=== PATIENT | male | born 1985 | race Caucasian/White ===

== ENCOUNTER 2020-03-23 03:25 | Emergency (ER) | payer BC, OTHER ==
[~2020-03-23] VITALS: Ht 185.5 cm; Wt 97.7 kg
[~2020-03-23 03:25] MED LIST: HYDR1CAP2 PO; HYDR1TAB86 PO
--- OUTSIDE RECORDS SUMMARY | 2020-03-23 03:31 | XMS REPORT | Continuity of Care Document ---
Author Organization Unknown Address Unknown Phone Unavailable Allergies Active Description Code Type Severity Reaction Onset Reported/Identified Relationship to Patient Clinical Status Yes MDX - Penicillin X193 Drug Allerg y Unknown N/A 05/26/2014 Yes Penicillin X193 Drug Allergy Unknown N/A 05/26/2014 Medications There is no data. Problems Date Dx Coded Attending Type Code Diagnosis Diagnosed By 08/29/2014 A 296.90 08/29/2014 W 298.9 08/29/2014 W 305.20 08/29/2014 W 493.90 08/29/2014 W 530.81 08/29/2014 W 601.1 08/29/2014 W V60.2 08/29/2014 W V62.4 08/29/2014 A 296.90 08/29/2014 W 298.9 08/29/2014 W 305.20 08/29/2014 W 493.90 08/29/2014 W 530.81 08/29/2014 W 601.1 08/29/2014 W V60.2 08/29/2014 W V62.4 08/29/2014 W V67.3 08/29/2014 A 296.90 08/29/2014 W 298.9 08/29/2014 W 305.20 08/29/2014 W 493.90 08/29/2014 W 530.81 08/29/2014 W 601.1 08/29/2014 W V60.2 08/29/2014 W V62.4 08/29/2014 W V67.3 09/05/2014 A 296.90 09/05/2014 W 298.9 09/05/2014 W 305.20 09/05/2014 W 493.90 09/05/2014 W 530.81 09/05/2014 W 601.1 09/05/2014 W V60.2 09/05/2014 W V62.4 09/05/2014 A 296.90 09/05/2014 W 298.9 09/05/2014 W 305.20 09/05/2014 W 493.90 09/05/2014 W 530.81 09/05/2014 W 601.1 09/05/2014 W V60.2 09/05/2014 W V62.4 09/05/2014 W V67.3 09/05/2014 A 296.90 09/05/2014 W 298.9 09/05/2014 W 305.20 09/05/2014 W 493.90 09/05/2014 W 530.81 09/05/2014 W 601.1 09/05/2014 W V60.2 09/05/2014 W V62.4 09/05/2014 W V67.3 10/07/2014 Regine NAZARIO, Aveekshit A 296.90 10/07/2014 Regine NAZARIO, Aveekshit W 298.9 10/07/2014 Regine NAZARIO, Aveekshit W 305.20 10/07/2014 Regine NAZARIO, Ave[place] W 493.90 10/07/2014 Regine NAZARIO, Aveekshit W 530.81 10/07/2014 Regine NAZARIO, Aveekshit W 601.1 10/07/2014 Regine NAZARIO, Aveekshit W V60.2 10/07/2014 Regine NAZARIO, Aveekshit W V67.3 10/09/2014 Regine NAZARIO, Aveekshit A 296.90 10/09/2014 Regine NAZARIO, Aveekshit W 298.9 10/09/2014 Regine NAZARIO, Aveekshit W 305.20 10/09/2014 Regine NAZARIO, Aveekshit W 493.90 10/09/2014 Regine NAZARIO, Aveekshit W 530.81 10/09/2014 Regine NAZARIO, Aveekshit W 601.1 10/09/2014 Regine NAZARIO, Aveekshit W V60.2 10/09/2014 Regine NAZARIO, Aveekshit W V67.3 10/21/2014 Regine NAZARIO, Aveekshit A 296.90 10/21/2014 Regine NAZARIO, Aveekshit W 298.9 10/21/2014 Regine NAZARIO, Aveekshit W 305.20 10/21/2014 Regine NAZARIO, Aveekshit W 493.90 10/21/2014 Regine NAZARIO, Aveekshit W 530.81 10/21/2014 Regine NAZARIO, Aveekshit W 601.1 10/21/2014 Rgeine NAZARIO, Aveekshit W V60.2 10/21/2014 Regine NAZARIO, Aveekshit W V67.3 10/24/2014 Jose Carlos NAZARIO, Stewart W 45 6.4 10/24/2014 Jose Carlos NAZARIO, Stewart A 60 3.9 10/24/2014 A 296.90 10/24/2014 W 298.9 10/24/2014 W 305.20 10/24/2014 W 493.90 10/24/2014 W 530.81 10/24/2014 W 601.1 10/24/2014 W V60.2 10/24/2014 W V62.4 10/24/2014 A 296.90 10/24/2014 W 298.9 10/24/2014 W 305.20 10/24/2014 W 493.90 10/24/2014 W 530.81 10/24/2014 W 601.1 10/24/2014 W V60.2 10/24/2014 W V62.4 10/24/2014 W V67.3 10/24/2014 A 296.90 10/24/2014 W 298.9 10/24/2014 W 305.20 10/24/2014 W 493.90 10/24/2014 W 530.81 10/24/2014 W 601.1 10/24/2014 W V60.2 10/24/2014 W V62.4 10/24/2014 W V67.3 10/31/2014 Regine NAZARIO, Aveekshit A 296.90 10/31/2014 Regine NAZARIO, Aveekshit W 298.9 10/31/2014 Regine NAZARIO, Aveekshit W 305.20 10/31/2014 Regine NAZARIO, Aveekshit W 493.90 10/31/2014 Regine NAZARIO, Aveekshit W 530.81 10/31/2014 Regine NAZARIO, Aveekshit W 601.1 10/31/2014 Regine NAZARIO, Aveekshit W V60.2 10/31/2014 Regine NAZARIO, Aveekshit W V67.3 11/02/2014 Regine NAZARIO, Aveekshit A 296.90 11/02/2014 Regine NAZARIO, Aveekshit W 298.9 11/02/2014 Regine NAZARIO, Aveekshit W 305.20 11/02/2014 Regine NAZARIO, Aveekshit W 493.90 11/02/2014 Regine NAZARIO, Aveekshit W 530.81 11/02/2014 Regine NAZARIO, Aveekshit W 601.1 11/02/2014 Regine NAZARIO, Aveekshit W V60.2 11/02/2014 Regine NAZARIO, Aveekshit W V67.3 01/09/2015 A 296.90 01/09/2015 W 298.9 01/09/2015 W 305.20 01/09/2015 W 493.90 01/09/2015 W 530.81 01/09/2015 W 601.1 01/09/2015 W V60.2 01/09/2015 W V67.3 01/16/2015 Regine NAZARIO, Aveekshit A 296.90 01/16/2015 Regine NAZARIO, Aveekshit W 298.9 01/16/2015 Regine NAZARIO, Aveekshit W 305.20 01/16/2015 Regine NAZARIO, Aveekshit W 493.90 01/16/2015 Regine NAZARIO, Aveekshit W 530.81 01/16/2015 Regine NAZARIO, Aveekshit W 601.1 01/16/2015 Regine NAZARIO, Aveekshit W V60.2 01/16/2015 Regine NAZARIO, Aveekshit W V67.3 01/18/2015 Regine NAZARIO, Aveekshit A 296.90 01/18/2015 Regine NAZARIO, Aveekshit W 298.9 01/18/2015 Regine NAZARIO, Aveekshit W 305.20 01/18/2015 Regine NAZARIO, Aveekshit W 493.90 01/18/2015 Regine NAZARIO, Aveekshit W 530.81 01/18/2015 Regine NAZARIO, Aveekshit W 601.1 01/18/2015 Regine NAZARIO, Aveekshit W V60.2 01/18/2015 Regine NAZARIO, Aveekshit W V67.3 01/23/2015 Regine NAZARIO, Aveekshit A 296.90 01/23/2015 Regine NAZARIO, Aveekshit W 298.9 01/23/2015 Regine NAZARIO, Aveekshit W 305.20 01/23/2015 Regine NAZARIO, Aveekshit W 493.90 01/23/2015 Regine NAZARIO, Aveekshit W 530.81 01/23/2015 Regine NAZARIO, Aveekshit W 601.1 01/23/2015 Regine NAZARIO, Aveekshit W V60.2 01/23/2015 Regine NAZARIO, Aveekshit W V67.3 02/04/2015 Regine NAZARIO, Aveekshit A 296.90 02/04/2015 Regine NAZARIO, Aveekshit W 298.9 02/04/2015 Regine NAZARIO, Aveekshit W 305.20 02/04/2015 Regine NAZARIO, Aveekshit W 493.90 02/04/2015 Regine NAZARIO, Aveekshit W 530.81 02/04/2015 Regine NAZARIO, Aveekshit W 601.1 02/04/2015 Regine NAZARIO, Aveekshit W V60.2 02/04/2015 Regine NAZARIO, Aveekshit W V67.3 02/06/2015 Regine NAZARIO, Aveekshit A 296.90 02/06/2015 Regine NAZARIO, Aveekshit W 298.9 02/06/2015 Regine NAZARIO, Aveekshit W 305.20 02/06/2015 Regine NAZARIO, Aveekshit W 493.90 02/06/2015 Regine NAZARIO, Aveekshit W 530.81 02/06/2015 Regine NAZARIO, Aveekshit W 601.1 02/06/2015 Regine NAZARIO, Aveekshit W V60.2 02/06/2015 Regine NAZARIO, Aveekshit W V67.3 02/13/2015 Regine NAZARIO, Aveekshit A 296.90 02/13/2015 Regine NAZARIO, Aveekshit W 298.9 02/13/2015 Regine NAZARIO, Aveekshit W 305.20 02/13/2015 Regine NAZARIO, Aveekshit W 493.90 02/13/2015 Regine NAZARIO, Aveekshit W 530.81 02/13/2015 Regine NAZARIO, Aveekshit W 601.1 02/13/2015 Regine NAZARIO, Aveekshit W V60.2 02/13/2015 Regine NAZARIO, Aveekshit W V67.3 02/18/2015 Regine NAZARIO, Aveekshit A 296.90 02/18/2015 Regine NAZARIO, Aveekshit W 298.9 02/18/2015 Regine NAZARIO, Aveekshit W 305.20 02/18/2015 Regine NAZARIO, Aveekshit W 493.90 02/18/2015 Regine NAZARIO, Aveekshit W 530.81 02/18/2015 Regine NAZARIO, Aveekshit W 601.1 02/18/2015 Regine NAZARIO, Aveekshit W V60.2 02/18/2015 Regine NAZARIO, Aveekshit W V67.3 02/18/2015 Regine NAZARIO, Aveekshit A 296.90 02/18/2015 Regine NAZARIO, Aveekshit W 298.9 02/18/2015 Regine NAZARIO, Aveekshit W 305.20 02/18/2015 Regine NAZARIO, Aveekshit W 493.90 02/18/2015 Regine NAZARIO, Aveekshit W 530.81 02/18/2015 Regine NAZARIO, Aveekshit W 601.1 02/18/2015 Regine NAZARIO, Aveekshit W V60.2 02/18/2015 Regine NAZARIO, Aveekshit W V67.3 02/20/2015 Regine NAZARIO, Aveekshit A 296.90 02/20/2015 Regine NAZARIO, Aveekshit W 298.9 02/20/2015 Regine NAZARIO, Aveekshit W 305.20 02/20/2015 Regine NAZARIO, Aveekshit W 493.90 02/20/2015 Regine NAZARIO, Aveekshit W 530.81 02/20/2015 Regine NAZARIO, Aveekshit W 601.1 02/20/2015 Regine NAZARIO, Aveekshit W V60.2 02/20/2015 Regine NAZARIO, Aveekshit W V67.3 02/27/2015 Regine NAZARIO, Aveekshit A 296.90 02/27/2015 Regine NAZARIO, Aveekshit W 298.9 02/27/2015 Regine NAZARIO, Aveekshit W 305.20 02/27/2015 Regine NAZARIO, Aveekshit W 493.90 02/27/2015 Regine NAZARIO, Aveekshit W 530.81 02/27/2015 Regine NAZARIO, Aveekshit W 601.1 02/27/2015 Regine NAZARIO, Aveekshit W V60.2 02/27/2015 Regine NAZARIO, Aveekshit W V67.3 04/24/2015 Regine NAZARIO, Aveekshit A 296.90 04/24/2015 Regine NAZARIO, Aveekshit W 298.9 04/24/2015 Regine NAZARIO, Aveekshit W 305.20 04/24/2015 Regine NAZARIO, Aveekshit W 493.90 04/24/2015 Regine NAZARIO, Aveekshit W 530.81 04/24/2015 Regine NAZARIO, Aveekshit W 601.1 04/24/2015 Regine NAZARIO, Aveekshit W V60.2 04/24/2015 Regine NAZARIO, Aveekshit W V67.3 04/26/2015 Regine NAZARIO, Aveekshit A 296.90 04/26/2015 Regine NAZARIO, Aveekshit W 298.9 04/26/2015 Regine NAZARIO, Aveekshit W 305.20 04/26/2015 Regine NAZARIO, Aveekshit W 493.90 04/26/2015 Regine NAZARIO, Aveekshit W 530.81 04/26/2015 Regine NAZARIO, Aveekshit W 601.1 04/26/2015 Regine NAZARIO, Aveekshit W V60.2 04/26/2015 Regine NAZARIO, Aveekshit W V67.3 05/08/2015 Regine NAZARIO, Aveekshit A 296.90 05/08/2015 Regine NAZARIO, Aveekshit W 298.9 05/08/2015 Regine NAZARIO, Aveekshit W 305.20 05/08/2015 Regine NAZARIO, Aveekshit W 493.90 05/08/2015 Regine NAZARIO, Aveekshit W 530.81 05/08/2015 Regine NAZARIO, Aveekshit W 601.1 05/08/2015 Regine NAZARIO, Aveekshit W V60.2 05/08/2015 Regine NAZARIO, Aveekshit W V67.3 01/21/2016 Regine NAZARIO, Aveekshit A 296.90 01/21/2016 Regine NAZARIO, Aveekshit W 298.9 01/21/2016 Regine NAZARIO, Aveekshit W 305.20 01/21/2016 Regine NAZARIO, Aveekshit W 493.90 01/21/2016 Regine NAZARIO, Aveekshit W 530.81 01/21/2016 Regine NAZARIO, Aveekshit W 601.1 01/21/2016 Regine NAZARIO, Aveekshit W V60.2 01/21/2016 Regine NAZARIO, Aveekshit W V67.3 01/21/2016 Regine NAZARIO, Aveekshit A 296.90 01/21/2016 Regine NAZARIO, Aveekshit W 298.9 01/21/2016 Regine NAZARIO, Aveekshit W 305.20 01/21/2016 Regine NAZARIO, Aveekshit W 493.90 01/21/2016 Regine NAZARIO, Aveekshit W 530.81 01/21/2016 Regine NAZARIO, Aveekshit W 601.1 01/21/2016 Regine NAZARIO, Aveekshit W V60.2 01/21/2016 Regine NAZARIO, Aveekshit W V67.3 01/21/2016 Regine NAZARIO, Aveekshit A 296.90 01/21/2016 Regine NAZARIO, Aveekshit W 298.9 01/21/2016 Regine NAZARIO, Aveekshit W 305.20 01/21/2016 Regine NAZARIO, Aveekshit W 493.90 01/21/2016 Regine NAZARIO, Aveekshit W 530.81 01/21/2016 Regine NAZARIO, Aveekshit W 601.1 01/21/2016 Regine NAZARIO, Aveekshit W V60.2 01/21/2016 Regine NAZARIO, Aveekshit W V67.3 01/21/2016 Regine NAZARIO, Aveekshit A 296.90 01/21/2016 Regine NAZARIO, Aveekshit W 298.9 01/21/2016 Regine NAZARIO, Aveekshit W 305.20 01/21/2016 Regine NAZARIO, Aveekshit W 493.90 01/21/2016 Regine NAZARIO, Aveekshit W 530.81 01/21/2016 Regine NAZARIO, Aveekshit W 601.1 01/21/2016 Regine NAZARIO, Aveekshit W V60.2 01/21/2016 Regine NAZARIO, Aveekshit W V67.3 01/27/2016 Regine NAZARIO, Aveekshit A F31.4 01/29/2016 Regine NAZARIO, Aveekshit A F31.4 04/28/2016 Regine NAZARIO, Aveekshit A F31.81 BIPOLAR II DISORDER 04/30/2016 Regine NAZARIO, Aveekshit A F31.81 BIPOLAR II DISORDER Procedures There is no data. Results There is no data. Encounters ACCT No. Visit Date/Time Discharge Status Pt. Type Provider Facility Loc./Unit Complaint [id number] 04/23/2016 14:51:00 6 23:59:59 CLS Outpatient Mei MDeekshit [facility] [id number] 01/21/2016 09:21:00 6 23:59:59 CLS Outpatient Mei MDeeksnandinit [facility] [id number] 04/15/2015 17:23:00 5 23:59:59 CLS Outpatient Coretta Weiner MDksduc [facility] [id number] 02/11/2015 16:56:00 5 23:59:59 CLS Outpatient Mei MDeeksnandinit [facility] [id number] 01/28/2015 17:37:00 5 23:59:59 CLS Outpatient Mei MDeesang [facility] [id number] 01/07/2015 16:39:00 5 23:59:59 CLS Outpatient Mei MDeeksduc [facility] [id number] 10/24/2014 17:20:00 5 23:59:59 CLS Outpatient Mei MDeesang [facility] [id number] 09/26/2014 17:47:00 4 23:59:59 CLS Outpatient Mei MDeeksduc [facility] [id number] 06/04/2014 07:50:00 4 23:59:59 CLS Outpatient Stewart Branch MD [facility] COL.RAD [id number] 05/26/2014 20:45:00 4 01:10:00 DIS Emergency [id number] 10/19/2013 14:46:00 4 18:01:00 DIS Emergency [id number] 10/01/2013 22:20:00 3 00:33:00 DIS Emergency [id number] 12/19/2014 17:24:00 Document Registration [id number] 08/16/2014 17:54:00 Document Registration [id number] 07/09/2014 16:56:00 Document Registration [id number] 06/04/2014 08:55:00 Document Registration
[2020-03-23] MEDS ORDERED: LITH300C (03:41)
[2020-03-23] MEDS ORDERED: BUPR150T7 (03:41)
[2020-03-23] MEDS ORDERED: QUET25TA73 (03:41)
--- NOTE | 2020-03-23 03:42 | ED GU-Male ---
General Stated Complaint: TESTICULAR PAIN Source: patient Exam Limitations: no limitations History of Present Illness Date Seen by Provider: Mar 23, 2020 Time Seen by Provider: 03:30 Initial Comments Patient resents ER by private conveyance from home with chief complaint about 1:00 this morning he was awoken with left testicular pain. He says had this before in the past and had ultrasound and all they found was a varicocele. He says as long she doesn't move the pain is not great. If anybody manipulated the pain goes up to about 8 out of 10. He has not taken anything for the pain. No history of inguinal hernias or abdominal surgeries. He does take lithium, Wellbutrin and Seroquel. He gets his medications filled through his psychiatrist but does not follow with a general doctor. He does not follow with a urologist. He says he recently moved here and has not established care yet. He denies fevers, chills shortness of breath, dysuria, discharge, dyspareunia or diarrhea. Allergies and Home Medications Allergies Coded Allergies: Penicillins (Unverified Allergy, Mild, RASH, 06/23/10) Home Medications Hydrocodone Bit/Acetaminophen 1 Each Tablet, 1 EACH PO Q6HR PRN Prescribed by: PHOEBE CISNEROS on 06/23/10 0330 [Hydrocet 5-5001 Each] , 5-500 MG PO NEEDED, (Reported) Patient Home Medication List Home Medication List Reviewed: Yes Review of Systems Review of Systems Constitutional: No chills, No diaphoresis EENTM: No ear discharge, No ear pain Respiratory: No cough, No short of breath Cardiovascular: No chest pain, No edema Gastrointestinal: No abdominal pain, No constipation, No diarrhea, No nausea Genitourinary: see HPI; denies burning, denies discharge, denies dysuria; pain (l teste) All Other Systemes Reviewed Negative Unless Noted: Yes Past Nhvlsmm-Iboyqp-Rwgipm Hx Patient Social History Alcohol Use: Occasionally Uses Recreational Drug Use: No Smoking Status: Former Smoker Type Used: Cigarettes Recent Foreign Travel: No Contact w/Someone Who Travel: No Physical Exam Vital Signs Capillary Refill : Height, Weight, BMI Height: '" Weight: lbs. oz. kg; BMI Method: General Appearance: WD/WN, mild distress HEENT: PERRL/EOMI, pharynx normal Cardiovascular: normal peripheral pulses, regular rate, rhythm Respiratory: no respiratory distress, no accessory muscle use Gastrointestinal: non tender, soft Genital/Rectal: normal genital exam (no lesions or discharge of the penis on palpation. Nontender. Right testicle soft, normal sized without tenderness. Left testicle tender with a feeling of a bag of worms on the inferior pole. Roughly 10-20% larger in size than the right testicle. No other mass, lesion or swelling of the scrotum or testicles.) Neurologic/Psychiatric: alert, normal mood/affect, oriented x 3 Skin: normal color, warm/dry Progress/Results/Core Measures Suspected Sepsis SIRS Temperature: Pulse: Respiratory Rate: Blood Pressure / Mean: Results/Orders My Orders Orders - JENNIFER FUCHS Ketorolac Injection (Toradol Injection) (03/23/20 03:45) Vital Signs/I&O Capillary Refill : Progress Note : Time: 03:35 Progress Note We do not have ultrasound available so we called [facility] which also apparently has no ultrasound available. 034 called [facility] and looking to do an ER to ER transfer for ultrasound for possible testicular torsion. Have attempted to collect urine but the patient says he keep her right before coming in and does not think he can produce a sample at this time. Departure Impression Primary Impression: Left testicular torsion Disposition: XFER SHT-TRM HOSP Condition: Stable Transfer Transfer Reason: Exceeds level of care (ultrasound not available) Time Spoke to Accepting Phy: 03:45 Transfer Progress Notes Discussed the case with Dr. Webber, ED physician and he accepts the patient for ultrasound to rule out torsion. Transfer Time: 03:55 Transfer Facility: [place], [place] Method of Transfer: Private Vehicle Departure-Patient Inst. Referrals: NO,LOCAL PHYSICIAN (PCP/Family) Primary Care Physician JENNIFER FUCHS Mar 23, 2020 03:42
[2020-03-23] MEDS ORDERED: KETOROLAC 60 MG/2 ML VIAL IM ONE (03:45)
[2020-03-23 03:55] VITALS: BP 156/96
== END 2020-03-23 04:05 | disposition short-term general hospital (02) ==
LOC: EDUNIT# 03:25 → ER 03:27
DX: N44.00 Torsion of testis, unspecified (principal); Z88.0 Allergy status to penicillin; Z87.891 Personal history of nicotine dependence

== ENCOUNTER 2020-09-16 18:40 | Emergency (ER) | payer BC ==
[~2020-09-16] VITALS: Ht 185 cm; Wt 99.7 kg
[~2020-09-16 18:40] MED LIST changes: +BUPR150T7; +LITH300C; +QUET25TA73
--- NOTE | 2020-09-16 19:24 | ED General ---
General Chief Complaint: General Problems/Pain Stated Complaint: CHEST PAIN/FEVER/CHILLS Source of Information: Patient Exam Limitations: No Limitations History of Present Illness Date Seen by Provider: Sep 16, 2020 Time Seen by Provider: 19:23 Initial Comments To ER with chest pain bilateral upper chest worse with deep breathing. Denies shortness of breath. He has had a fever. Tested negative for Covid last week. Timing/Duration: 1-2 Days Severity: Moderate Associated Systoms: Denies Symptoms Allergies and Home Medications Allergies Coded Allergies: Penicillins (Unverified Allergy, Mild, RASH, 06/23/10) Home Medications Hydrocodone Bit/Acetaminophen 1 Each Tablet, 1 EACH PO Q6HR PRN Prescribed by: PHOEBE CISNEROS on 06/23/10 0330 [Hydrocet 5-5001 Each] , 5-500 MG PO NEEDED, (Reported) Patient Home Medication List Home Medication List Reviewed: Yes Review of Systems Review of Systems Constitutional: see HPI, chills EENTM: see HPI Respiratory: see HPI Cardiovascular: see HPI, chest pain Genitourinary: no symptoms reported Musculoskeletal: no symptoms reported Skin: no symptoms reported Psychiatric/Neurological: No Symptoms Reported Hematologic/Lymphatic: No Symptoms Reported Immunological/Allergic: no symptoms reported Past Yuollmv-Koahez-Bhdrkg Hx Patient Social History Type Used: Cigarettes 2nd Hand Smoke Exposure: Yes Recent Hopitalizations: No Immunizations Up To Date Tetanus Booster (TDap): Unknown Seasonal Allergies Seasonal Allergies: No Past Medical History Surgeries: No Respiratory: No Cardiac: No Neurological: No Genitourinary: No Gastrointestinal: No Musculoskeletal: No Endocrine: No HEENT: No Cancer: No Psychosocial: Yes Bipolar Integumentary: No Blood Disorders: No Physical Exam Vital Signs Vital Signs - First Documented 09/16/20 19:06 Temp 36.3 Pulse 103 Resp 22 B/P (MAP) 164/104 (124) Pulse Ox 100 O2 Delivery Room Air Capillary Refill : Height, Weight, BMI Height: '" Weight: lbs. oz. kg; 28.00 BMI Method: General Appearance: No Apparent Distress, WD/WN Eyes: Bilateral Eye Normal Inspection, Bilateral Eye PERRL, Bilateral Eye EOMI Neck: Full Range of Motion, Normal Inspection Respiratory: Normal Breath Sounds, No Accessory Muscle Use, No Respiratory Distress Cardiovascular: Regular Rate, Rhythm, Normal Peripheral Pulses Gastrointestinal: Normal Bowel Sounds, Non Tender, Soft Extremity: Normal Capillary Refill, Normal Inspection Neurologic/Psychiatric: Alert, Oriented x3 Skin: Normal Color, Warm/Dry Progress/Results/Core Measures Suspected Sepsis SIRS Temperature: Pulse: Respiratory Rate: Laboratory Tests 09/16/20 19:15: White Blood Count 10.9 Blood Pressure / Mean: Laboratory Tests 09/16/20 19:15: Creatinine 1.15, Platelet Count 258, Total Bilirubin 1.1H Results/Orders Lab Results Laboratory Tests Test 09/16/20 18:18 09/16/20 19:15 Range/Units White Blood Count 10.9 4.3-11.0 10^3/uL Red Blood Count 5.13 4.30-5.52 10^6/uL Hemoglobin 15.0 13.3-17.7 g/dL Hematocrit 45 40-54 % Mean Corpuscular Volume 88 80-99 fL Mean Corpuscular Hemoglobin 29 25-34 pg Mean Corpuscular Hemoglobin Concent 33 32-36 g/dL Red Cell Distribution Width 13.0 10.0-14.5 % Platelet Count 258 130-400 10^3/uL Mean Platelet Volume 9.2 9.0-12.2 fL Immature Granulocyte % (Auto) 0 % Neutrophils (%) (Auto) 85 H 42-75 % Lymphocytes (%) (Auto) 7 L 12-44 % Monocytes (%) (Auto) 7 0-12 % Eosinophils (%) (Auto) 0 0-10 % Basophils (%) (Auto) 0 0-10 % Neutrophils # (Auto) 9.3 H 1.8-7.8 10^3/uL Lymphocytes # (Auto) 0.8 L 1.0-4.0 10^3/uL Monocytes # (Auto) 0.8 0.0-1.0 10^3/uL Eosinophils # (Auto) 0.0 0.0-0.3 10^3/uL Basophils # (Auto) 0.0 0.0-0.1 10^3/uL Immature Granulocyte # (Auto) 0.0 0.0-0.1 10^3/uL Neutrophils % (Manual) 87 % Lymphocytes % (Manual) 7 % Monocytes % (Manual) 6 % Blood Morphology Comment NORMAL D-Dimer 0.51 H 0.00-0.49 UG/ML Sodium Level 137 135-145 MMOL/L Potassium Level 3.5 L 3.6-5.0 MMOL/L Chloride Level 102 98-107 MMOL/L Carbon Dioxide Level 21 21-32 MMOL/L Anion Gap 14 5-14 MMOL/L Blood Urea Nitrogen 14 7-18 MG/DL Creatinine 1.15 0.60-1.30 MG/DL Estimat Glomerular Filtration Rate > 60 BUN/Creatinine Ratio 12 Glucose Level 135 H 70-105 MG/DL Calcium Level 8.9 8.5-10.1 MG/DL Corrected Calcium 8.7 8.5-10.1 MG/DL Total Bilirubin 1.1 H 0.1-1.0 MG/DL Aspartate Amino Transf (AST/SGOT) 23 5-34 U/L Alanine Aminotransferase (ALT/SGPT) 29 0-55 U/L Alkaline Phosphatase 46 40-136 U/L Troponin I < 0.028 <0.028 NG/ML C-Reactive Protein High Sensitivity 14.53 H 0.00-0.50 MG/DL Total Protein 7.1 6.4-8.2 GM/DL Albumin 4.3 3.2-4.5 GM/DL My Orders Orders - SEUN LISA APRN Troponin I (09/16/20 18:46) Ekg Tracing (09/16/20 18:46) Cbc With Automated Diff (09/16/20 18:46) Comprehensive Metabolic Panel (09/16/20 18:46) Hs C Reactive Protein (09/16/20 18:46) Coronavirus Sars-Cov-2 So 2018 (09/16/20 18:46) Chest 1 View, Ap/Pa Only (09/16/20 18:46) Ketorolac Injection (Toradol Injection) (09/16/20 19:30) Ondansetron Injection (Zofran Injectio (09/16/20 19:30) Manual Differential (09/16/20 19:15) Fibrin Degradation Products (09/16/20 20:15) Ct Angio Chest W (09/16/20 20:40) Iohexol Injection (Omnipaque 350 Mg/Ml 1 (09/16/20 20:45) Received Contrast (Hold Metformin- Contr (09/16/20 20:45) Ns (Ivpb) (Sodium Chloride 0.9% Ivpb Bag (09/16/20 20:45) Medications Given in ED Current Medications Medications Dose Ordered Sig/Abigail Route Start Time Stop Time Status Last Admin Dose Admin Ketorolac Tromethamine 15 mg ONCE ONCE IVP 09/16/20 19:30 09/16/20 19:31 DC 09/16/20 19:28 15 MG Ondansetron HCl 8 mg ONCE ONCE IVP 09/16/20 19:30 09/16/20 19:31 DC 09/16/20 19:28 8 MG Vital Signs/I&O 09/16/20 19:06 Temp 36.3 Pulse 103 Resp 22 B/P (MAP) 164/104 (124) Pulse Ox 100 O2 Delivery Room Air Capillary Refill : Departure Impression Primary Impression: Viral syndrome Additional Impression: Pleuritic chest pain Disposition: HOME, SELF-CARE Condition: Stable Departure-Patient Inst. Decision time for Depature: 21:07 Referrals: NO,LOCAL PHYSICIAN (PCP/Family) Primary Care Physician Patient Instructions: Pleuritic Chest Pain, Viral Syndrome (DC) Add. Discharge Instructions: 1. Tylenol and Motrin for pain and fever control. Return to ER for any worsening symptoms. Your acute phase inflammatory markers are elevated which is a very common finding in Covid. I would not be surprised if your Covid results come back positive tomorrow. As such you should stay home and quarantine until these results are back. Emergency department focuses on treating and ruling out life-threatening diseases. Whenever possible, a diagnosis is given. However, most patients are given an impression based on their history, physical exam, and workup during your brief time in the ER. Information about probable diagnosis and other educational material has been provided. Please take the time to read and understand this information. It is very important that you follow up with a physician as discussed during the visit today. Failure to adhere to your follow-up instructions may lead to severe disability, injury, or so please make sure to keep your appointments or obtain one as requested. All discharge instructions reviewed with patient and/or family. Voiced understan sho. Work/School Note: Work Release Form Date Seen in the Emergency Department: Sep 16, 2020 Return to Work: Sep 16, 2020 Restrictions: Need Release from SEUN George APRN Sep 16, 2020 19:24
[2020-09-16] MEDS ORDERED: ONDANSETRON 4 MG/2 ML (SDV) Z0FRAN IVP ONE (19:30)
[2020-09-16] MEDS ORDERED: KETOROLAC 30 MG/ML VIAL IVP ONE (19:30)
[2020-09-16 19:31] LABS: BASOPHILS % (AUTO) 0 % (0-10); EOSINOPHILS % (AUTO) 0 % (0-10); HEMATOCRIT 45 % (40-54); LYMPHOCYTES # (AUTO) 0.8 10^3/uL (1.0-4.0); LYMPHOCYTES % (AUTO) 7 % (12-44); MEAN CORPUSCULAR HEMOGLOBIN 29 pg (25-34); MEAN CORPUSCULAR HGB CONC 33 g/dL (32-36); MEAN CORPUSCULAR VOLUME 88 fL (80-99); MEAN PLATELET VOLUME 9.2 fL (9.0-12.2); MONOCYTES # (AUTO) 0.8 10^3/uL (0.0-1.0); MONOCYTES % (AUTO) 7 % (0-12); NEUTROPHILS # (AUTO) 9.3 10^3/uL (1.8-7.8); NEUTROPHILS % (AUTO) 85 % (42-75); PLATELET COUNT 258 10^3/uL (130-400); WHITE BLOOD COUNT 10.9 10^3/uL (4.3-11.0)
[2020-09-16 19:49] LABS: ALANINE AMINOTRANSFERASE 29 U/L (0-55); ALBUMIN 4.3 GM/DL (3.2-4.5); ALKALINE PHOSPHATASE 46 U/L (40-136); BILIRUBIN,TOTAL 1.1 MG/DL (0.1-1.0); BUN/CREATININE RATIO 12; CALCIUM 8.9 MG/DL (8.5-10.1); CARBON DIOXIDE 21 MMOL/L (21-32); CHLORIDE 102 MMOL/L (98-107); CREATININE SERUM 1.15 MG/DL (0.60-1.30); GFR ESTIMATED > 60; GLUCOSE 135 MG/DL (70-105); POTASSIUM 3.5 MMOL/L (3.6-5.0); SODIUM 137 MMOL/L (135-145); TOTAL PROTEIN 7.1 GM/DL (6.4-8.2)
[2020-09-16 20:14] LABS: LYMPHOCYTES % (MANUAL) 7 %; MONOCYTES % (MANUAL) 6 %; NEUTROPHILS % (MANUAL) 87 %
[2020-09-16 20:15] LABS: RBC MORPH NORMAL
--- NOTE | 2020-09-16 20:15 | Diagnostic Imaging Report ---
EXAMINATION: Chest 1 view HISTORY: Cough, chest and back pain. COMPARISON: Chest radiograph, 07/20/2007 FINDINGS: Heart size and pulmonary vasculature are normal. The lungs are clear without consolidation, pleural effusion, or pneumothorax. . Healed fracture of the left clavicle. IMPRESSION: 1. No acute radiographic abnormality in the chest. Dictated by: Dictated on workstation # [id number]
[2020-09-16] MEDS ORDERED: IOHEXOL 350 MG/ML 100 ML (OMNIPAQUE 350) VIAL IV ONE (20:45)
[2020-09-16] MEDS ORDERED: HOLD METFORMIN - RECEIVED CONTRAST 20 ML VIAL IV SCH (20:45)
[2020-09-16] MEDS ORDERED: NS 100 ML (IVPB) BAG IV ONE (20:45)
--- NOTE | 2020-09-16 21:11 | Diagnostic Imaging Report ---
EXAMINATION: CT angiography of the chest. TECHNIQUE: Contrast enhanced thin section helical images were obtained through the chest with intravenous contrast timed for the optimal opacification of the arterial structures per CTA protocol. Post-processing, reconstructions and interpretation of angiographic images of the vessels was performed. 3D MIP reconstructions were performed and reviewed. All CT scans use one or more of the following dose optimizing techniques: automated exposure control, MA and/or KvP adjustment based on a patient size and exam type, or iterative reconstruction. HISTORY: Cough, chest pain, elevated D-dimer COMPARISON: Chest radiograph, 09/16/2020 FINDINGS: Vascular: No filling defects within the pulmonary arteries. Thoracic aorta is normal in caliber. Thyroid: The thyroid is normal. Mediastinum: Heart size is normal without significant pericardial effusion. No suspicious lymphadenopathy. Lungs and airways: The lungs are clear without consolidation, pleural effusion, or pneumothorax. Mild bibasilar dependent atelectasis. The airways are normal. Upper abdomen: The subphrenic structures are normal. Musculoskeletal: No suspicious osseous lesion or compression fracture. IMPRESSION: 1. No findings of pulmonary embolus. 2. No other acute abnormality in the chest. Dictated by: Dictated on workstation # [id number]
[2020-09-16 21:30] VITALS: BP 137/89
== END 2020-09-16 21:30 | disposition home or self-care (01) ==
LOC: EDUNIT# 18:40 → ER 18:42
DX: B34.9 Viral infection, unspecified (principal); R07.81 Pleurodynia; Z20.828 Contact with and (suspected) exposure to other viral communicable diseases; Z77.22 Contact with and (suspected) exposure to environmental tobacco smoke (acute) (chronic); Z88.0 Allergy status to penicillin
CPT/HCPCS: 71045; 71275; 80053; 84484; 85007; 85027; 85379; 86141; U0002; 36415; 87635; 93005

== ENCOUNTER 2021-05-26 00:47 | Emergency (ER) | payer BC ==
[~2021-05-26] VITALS: Ht 185.5 cm; Wt 102.0 kg
[~2021-05-26 00:47] MED LIST changes: +BUPR150T24; -BUPR150T7; +QUET25TA34; -QUET25TA73
[2021-05-26] MEDS ORDERED: ONDANSETRON 4 MG/2 ML (SDV) Z0FRAN IVP ONE ×2 (01:15→03:15)
[2021-05-26] MEDS ORDERED: KETOROLAC 30 MG/ML VIAL IVP ONE (01:15)
[2021-05-26] MEDS ORDERED: NS IV 1000 ML 1,000 ML IV SCH (01:15)
--- NOTE | 2021-05-26 01:17 | ED Abdominal Pain ---
General Stated Complaint: ABD PAIN Source of Information: Patient Exam Limitations: No Limitations History of Present Illness Date Seen by Provider: May 26, 2021 Time Seen by Provider: 01:05 Initial Comments Patient is a 35-year-old male who presents to the emergency department with a chief complaint of left flank left upper quadrant abdominal pain. Onset within the last 24 hours. Patient states that he has been a little bit nauseated but has not vomited. He denies diarrhea, black or bloody stools. He denies any radiation into the groin or left testicle. Patient has had previous testicular torsion/epididymitis and states this feels completely different. He denies any unusual foods but states that he did have takeout/delivery on Tuesday of some Pasta and a sandwich. No other sick contacts that he is aware of. He describes it as a "grabbing" pain and points to the left upper quadrant and left flank. No urinary discomfort, dysuria urgency or frequency. No blood in his urine. No history of kidney stones but he states he believes his father had 1 years ago. No recent fevers, chills, cough or congestion. No shortness of breath. No Covid concerns. All other review of systems reviewed and negative except as stated. Timing/Duration: 1-2 Days Severity/Quality: Severe, Sharp, Stabbing, Throbbing Location: LUQ, LLQ Radiation: Groin Associated Symptoms: Nausea/Vomiting Allergies and Home Medications Allergies Coded Allergies: Penicillins (Unverified Allergy, Mild, RASH, 06/23/10) Home Medications Hydrocodone Bit/Acetaminophen 1 Each Tablet, 1 EACH PO Q6HR PRN Prescribed by: PHOEBE CISNEROS on 06/23/10 0330 Ondansetron 8 Mg Tab.rapdis, 8 MG PO Q8H Prescribed by: ZAID TOSCANO on 05/26/21 0308 [Hydrocet 5-5001 Each] , 5-500 MG PO NEEDED, (Reported) Patient Home Medication List Home Medication List Reviewed: Yes Review of Systems Review of Systems Constitutional: see HPI EENTM: No Symptoms Reported Respiratory: No Symptoms Reported Cardiovascular: No Symptoms Reported Gastrointestinal: Abdominal Pain, Nausea Genitourinary: No Symptoms Reported Musculoskeletal: no symptoms reported Skin: no symptoms reported All Other Systems Reviewed Negative Unless Noted: Yes Past Vrhavye-Ybrsqe-Ssoovw Hx Immunizations Up To Date Tetanus Booster (TDap): More than 5yrs PED Vaccines UTD: Yes Seasonal Allergies Seasonal Allergies: No Past Medical History Surgeries: No Respiratory: No Cardiac: No Neurological: No Genitourinary: No Gastrointestinal: No Musculoskeletal: No Endocrine: No HEENT: No Cancer: No Psychosocial: Yes Bipolar Integumentary: No Blood Disorders: No Physical Exam Vital Signs Vital Signs - First Documented 05/26/21 01:06 Temp 36.5 Pulse 95 Resp 20 B/P (MAP) 171/96 (121) O2 Delivery Room Air Capillary Refill : Height/Weight/BMI Height: '" Weight: lbs. oz. kg; 29.00 BMI Method: General Appearance: WD/WN, moderate distress HEENT: PERRL/EOMI Respiratory: lungs clear, normal breath sounds, no respiratory distress, no accessory muscle use Cardiovascular: regular rate, rhythm Gastrointestinal: soft, tenderness (left lower abdomen) Extremities: normal range of motion, normal inspection Back: no CVA tenderness Neurologic/Psychiatric: no motor/sensory deficits, alert, normal mood/affect, oriented x 3 Skin: normal color, warm/dry Progress/Results/Core Measures Results/Orders Lab Results Laboratory Tests Test 05/26/21 01:15 Range/Units White Blood Count 9.3 4.3-11.0 10^3/uL Red Blood Count 5.06 4.30-5.52 10^6/uL Hemoglobin 14.5 13.3-17.7 g/dL Hematocrit 44 40-54 % Mean Corpuscular Volume 87 80-99 fL Mean Corpuscular Hemoglobin 29 25-34 pg Mean Corpuscular Hemoglobin Concent 33 32-36 g/dL Red Cell Distribution Width 13.3 10.0-14.5 % Platelet Count 293 130-400 10^3/uL Mean Platelet Volume 9.7 9.0-12.2 fL Immature Granulocyte % (Auto) 0 % Neutrophils (%) (Auto) 62 42-75 % Lymphocytes (%) (Auto) 28 12-44 % Monocytes (%) (Auto) 8 0-12 % Eosinophils (%) (Auto) 0 0-10 % Basophils (%) (Auto) 1 0-10 % Neutrophils # (Auto) 5.8 1.8-7.8 10^3/uL Lymphocytes # (Auto) 2.6 1.0-4.0 10^3/uL Monocytes # (Auto) 0.8 0.0-1.0 10^3/uL Eosinophils # (Auto) 0.0 0.0-0.3 10^3/uL Basophils # (Auto) 0.1 0.0-0.1 10^3/uL Immature Granulocyte # (Auto) 0.0 0.0-0.1 10^3/uL Urine Color YELLOW Urine Clarity CLEAR Urine pH 7.5 5-9 Urine Specific [place] 1.020 1.016-1.022 Urine Protein NEGATIVE NEGATIVE Urine Glucose (UA) NEGATIVE NEGATIVE Urine Ketones TRACE H NEGATIVE Urine Nitrite NEGATIVE NEGATIVE Urine Bilirubin NEGATIVE NEGATIVE Urine Urobilinogen 1.0 < = 1.0 MG/DL Urine Leukocyte Esterase NEGATIVE NEGATIVE Urine RBC (Auto) NEGATIVE NEGATIVE Urine RBC NONE /HPF Urine WBC NONE /HPF Urine Squamous Epithelial Cells 0-2 /HPF Urine Crystals NONE /LPF Urine Bacteria NEGATIVE /HPF Urine Casts NONE /LPF Urine Mucus LARGE H /LPF Urine Culture Indicated NO Sodium Level 141 135-145 MMOL/L Potassium Level 3.3 L 3.6-5.0 MMOL/L Chloride Level 104 98-107 MMOL/L Carbon Dioxide Level 21 21-32 MMOL/L Anion Gap 16 H 5-14 MMOL/L Blood Urea Nitrogen 12 7-18 MG/DL Creatinine 1.23 0.60-1.30 MG/DL Estimat Glomerular Filtration Rate 68 BUN/Creatinine Ratio 10 Glucose Level 120 H 70-105 MG/DL Calcium Level 9.9 8.5-10.1 MG/DL My Orders Orders - ZAID TOSCANO MD Ed Iv/Invasive Line Start (05/26/21 01:13) Cbc With Automated Diff (05/26/21 01:13) Basic Metabolic Panel (05/26/21 01:13) Ua Culture If Indicated (05/26/21 01:13) Abdomen/Kub 1view (05/26/21 01:13) Ct Abd/Pelvis Wo(Kidney Stone) (05/26/21 01:13) Ns Iv 1000 Ml (Sodium Chloride 0.9%) (05/26/21 01:15) Ondansetron Injection (Zofran Injectio (05/26/21 01:15) Ketorolac Injection (Toradol Injection) (05/26/21 01:15) Hydroxyzine Cap/Tab (Vistaril) (05/26/21 02:45) Ondansetron Injection (Zofran Injectio (05/26/21 03:15) Fentanyl Inj (Sublimaze Injection) (05/26/21 03:15) Medications Given in ED Current Medications Medications Dose Ordered Sig/Abigail Route Start Time Stop Time Status Last Admin Dose Admin Fentanyl Citrate 50 mcg ONCE ONCE IVP 05/26/21 03:15 05/26/21 03:16 DC 05/26/21 03:07 50 MCG Hydroxyzine Pamoate 50 mg ONCE ONCE PO 05/26/21 02:45 05/26/21 02:46 DC 05/26/21 02:43 50 MG Ketorolac Tromethamine 15 mg ONCE ONCE IVP 05/26/21 01:15 05/26/21 01:16 DC 05/26/21 01:26 15 MG Ondansetron HCl 4 mg ONCE ONCE IVP 05/26/21 01:15 05/26/21 01:16 DC 05/26/21 01:26 4 MG Ondansetron HCl 4 mg ONCE ONCE IVP 05/26/21 03:15 05/26/21 03:16 DC 05/26/21 03:07 4 MG Vital Signs/I&O 05/26/21 01:06 Temp 36.5 Pulse 95 Resp 20 B/P (MAP) 171/96 (121) O2 Delivery Room Air Progress Progress Note : Time: 03:44 Progress Note Patient reevaluated after pain medications nausea medications, IV fluids and CT scan. Labs are reviewed and are all reassuring/within normal limits. No evidence of urinary tract infection. CT scan shows no evidence of kidney stone or other acute intraperitoneal pathology. Patient is quite anxious and was also given some hydroxyzine here in the ED. I did give him some Bentyl p.o. I do not suspect any acute surgical pathology or significant infectious process. I think that he likely has an acute gastritis secondary to something that he possibly ate. We will send him home with nausea medications and Bentyl. Return precautions given. All questions are sought and answered. Diagnostic Imaging Diagonstic Imaging: CT Comments No hydronephrosis on CT, 2 punctate nonobstructive stones in the right kidney. Thickened bladder wall correlate with cystitis versus underdistention. Reading per stat rad radiology Departure Impression Primary Impression: Abdominal pain Qualified Codes: R10.12 - Left upper quadrant pain Disposition: 01 HOME, SELF-CARE Condition: Stable Departure-Patient Inst. Decision time for Depature: 03:06 Referrals: [facility]/THUY ORNELAS,LOCAL PHYSICIAN (PCP) Primary Care Physician Patient Instructions: Abdominal Pain, Adult ED Add. Discharge Instructions: Follow a clear liquid diet for the next 12 to 24 hours then slowly advance as tolerated. I have given you a prescription for nausea medications. You can take this every 6-8 hours as needed for nausea. I have also given you a prescription for bentyl, a medication for stomach cramping. you can take this every 6 hours as needed. Take ccrn-[id number]-bvdohss ibuprofen or Tylenol as needed for pain. Return to the emergency room in 24-48 hours if you have worsening pain especially with fever, vomiting, or any other emergent concerning symptoms. Follow up with [facility]. Scripts Dicyclomine HCl (Dicyclomine HCl) 20 Mg Tablet 20 MG PO Q6H PRN for abdominal cramping, #20 TAB Prov: ZAID TOSCANO MD 05/26/21 Ondansetron (Ondansetron Odt) 8 Mg Tab.rapdis 8 MG PO Q8H for nausea, #15 TAB Prov: ZAID TOSCANO MD 05/26/21 ZAID TOSCANO MD May 26, 2021 01:17
[2021-05-26 01:27] LABS: BILIRUBIN,URINE NEGATIVE (NEGATIVE); CLARITY,URINE CLEAR; COLOR,URINE YELLOW; GLUCOSE, URINE (UA) NEGATIVE (NEGATIVE); KETONES,URINE TRACE (NEGATIVE); LEUKOCYTE ESTERASE ,URINE NEGATIVE (NEGATIVE); NITRITE,URINE NEGATIVE (NEGATIVE); PH,URINE 7.5 (5-9); PROTEIN,URINE NEGATIVE (NEGATIVE)
[2021-05-26 01:28] LABS: BASOPHILS # (AUTO) 0.1 10^3/uL (0.0-0.1); BASOPHILS % (AUTO) 1 % (0-10); EOSINOPHILS % (AUTO) 0 % (0-10); HEMATOCRIT 44 % (40-54); HEMOGLOBIN 14.5 g/dL (13.3-17.7); LYMPHOCYTES # (AUTO) 2.6 10^3/uL (1.0-4.0); LYMPHOCYTES % (AUTO) 28 % (12-44); MEAN CORPUSCULAR HEMOGLOBIN 29 pg (25-34); MEAN CORPUSCULAR HGB CONC 33 g/dL (32-36); MEAN CORPUSCULAR VOLUME 87 fL (80-99); MEAN PLATELET VOLUME 9.7 fL (9.0-12.2); MONOCYTES # (AUTO) 0.8 10^3/uL (0.0-1.0); MONOCYTES % (AUTO) 8 % (0-12); NEUTROPHILS # (AUTO) 5.8 10^3/uL (1.8-7.8); NEUTROPHILS % (AUTO) 62 % (42-75); PLATELET COUNT 293 10^3/uL (130-400); WHITE BLOOD COUNT 9.3 10^3/uL (4.3-11.0)
[2021-05-26 01:38] LABS: POTASSIUM 3.3 MMOL/L (3.6-5.0)
[2021-05-26 01:39] LABS: CALCIUM 9.9 MG/DL (8.5-10.1)
[2021-05-26 01:43] LABS: CREATININE SERUM 1.23 MG/DL (0.60-1.30)
[2021-05-26 01:45] LABS: BACTERIA,URINE NEGATIVE /HPF; SQUAMOUS EPITHELIAL CELL,UR 0-2 /HPF
[2021-05-26] MEDS ORDERED: hydrOXYzine (VISTARIL/ATARAX) 25 MG capsule/tablet PO ONE (02:45)
[2021-05-26] MEDS ORDERED: ONDA8TAB13 PO (03:08)
[2021-05-26] MEDS ORDERED: fentaNYL INJ 100 MCG/2 ML AMP IVP ONE (03:15)
[2021-05-26] MEDS ORDERED: DICYCLOMINE 10 MG (BENTYL) CAP PO SCH (03:45)
[2021-05-26] MEDS ORDERED: DICY20TA10 PO (03:47)
[2021-05-26 04:16] VITALS: BP 149/83
--- NOTE | 2021-05-26 07:05 | Diagnostic Imaging Report ---
PROCEDURE: CT urinary tract, rule out kidney stone. TECHNIQUE: Multiple contiguous axial images were obtained through the abdomen and pelvis without the use of intravenous contrast. Auto Exposure Controls were utilized during the CT exam to meet ALARA standards for radiation dose reduction. INDICATION: Pain with urination There are no prior studies available for comparison. There is no [facility] report either. There are 3 tiny 1-2 mm nonobstructive calculi within the right kidney. There is no evidence for nephrolithiasis on the left and there is no sign of urolithiasis. The kidneys do not appear to be obstructed. The urinary bladder is not well-distended and consequently difficult to assess. There is no acute abnormality of the abdomen or pelvis noted otherwise. The appendix was visualized and is not abnormally thickened. There is no pelvic mass or free fluid collection noted. The prostate gland is not enlarged. The liver, spleen, pancreas, adrenals, gallbladder, aorta and inferior vena cava are unremarkable for an acute abnormality. The stomach is partially filled with fluid and difficult to assess. The lung bases are clear. The bone windows show no sign of a fracture or of a destructive lesion. IMPRESSION: 1. There are small nonobstructive calculi within the right kidney but there is no evidence for obstruction of either collecting system. 2. There is no acute abnormality of the abdomen or pelvis noted otherwise. 3. These results were called to Dr Kaur in the Emergency Room at 6:40 AM on 05/26/2021. Dictated by: Dictated on workstation # [id number]
--- NOTE | 2021-05-26 07:27 | Diagnostic Imaging Report ---
Supine abdomen at 0145 hours. INDICATION: Abdominal pain. 2 supine views were obtained. FINDINGS: The CT abdomen/pelvis exam performed prior to the study noted a few minute nonobstructive calculi involving the right kidney but failed to show any sign of an acute abnormality. On this exam, those non-obstructive calculi cannot be identified with certainty. There is no pathological calcification evident. There is no mass or organomegaly noted. There is gas in both the large and small bowel in a nonspecific fashion. There is no sign of bowel obstruction. The osseous structures are intact. IMPRESSION: 1. The bowel gas pattern is nonspecific. There is no acute abnormality identified. 2. The minute nonobstructive calculi within the right kidney seen previously cannot be identified on this exam. Dictated by: Dictated on workstation # [id number]
--- OUTSIDE RECORDS SUMMARY | 2021-05-26 21:34 | XMS REPORT | Clinical Summary ---
Author Author [facility] Organization [facility] Address Unknown Phone Unavailable Care Team Providers Care Quality Specialist Name Role Phone PCP Unavailable Allergies Comments Active Allergy Reactions Severity Noted Date Penicillins Rash Low 05/27/2014 Medications End Date Status Medication Sig Dispensed Refills Start Date Active loratadine (CLARITIN) 10 Take 10 mg by 0 MG tablet mouth daily. Active QUEtiapine (SEROQUEL XR) Take 1 tablet 14 tablet 0 150 MG 24 hr (150 mg 4 tabletIndications: Major total) by Depressive Disorder mouth daily with dinner. Indications: Major Depressive Disorder Active Problems Problem Noted Date Mood disorder 05/27/2014 Suicidal ideation 05/27/2014 Family History Medical History Relation Name Comments Mental retardation Father Asthma Mother COPD Mother Mental retardation Mother Relation Name Status Comments Father Alive Mother Alive Sister Alive Social History Date Tobacco Use Types Packs/Day Years Used Light Tobacco Smoker Sex Assigned at Date Recorded Not on file Last Filed Vital Signs Reading Time Taken Comments Vital Sign 121/60 05/29/2014 6:08 AM CDT Blood Pressure 70 05/29/2014 6:08 AM CDT Pulse 36.4 C (97.5 F) 05/29/2014 6:08 AM CDT Temperature 16 05/29/2014 6:08 AM CDT Respiratory Rate 98% 05/27/2014 3:54 AM CDT Oxygen Saturation - - Inhaled Oxygen Concentration 99.8 kg (220 lb) 05/27/2014 3:53 AM CDT Weight 185.4 cm (6' 0.99") 05/27/2014 3:53 AM CDT Height 29.03 05/27/2014 3:53 AM CDT Body Mass Index Plan of Treatment Health Maintenance Due Date Last Done Comments Varicella Vaccines (1 of 1988 2 - 2-dose childhood series) COVID-19 Vaccine (1) 1999 Hepatitis C Screening 2005 DTaP,Tdap,and Td Vaccines 2006 (1 - Tdap) MMR Vaccines-Adult 2006 Influenza Vaccine (#1) 2021 Pneumo-Vaccine: 65+Yrs (1 2052 of 1 - PPSV23) HIB Vaccines Aged Out No longer eligible based on patient's age to complete this topic IPV Vaccines Aged Out No longer eligible based on patient's age to complete this topic Meningococcal Vaccine Aged Out No longer eligib le based on patient's age to complete this topic Pneumo-Vaccine: Peds (0-5 Aged Out No longer el igible based on patient's age to Yrs) & At-Risk Patients complete this topic (6-64 Yrs) Rotavirus Vaccines Aged Out No longer eligible based on patient's age to complete this topic Results Not on filefrom Last 3 Months Advance Directives For more information, please contact: [phone] Date Inactivated Comments Code Status Date Activated 05/29/2014 12:29 PM Full Code 05/27/2014 3:14 AM
== END 2021-05-26 04:16 | disposition home or self-care (01) ==
LOC: EDUNIT# 00:47 → ER 00:52
DX: R10.12 Left upper quadrant pain (principal); R10.32 Left lower quadrant pain
CPT/HCPCS: 36415; 74018; 74176; 80048; 81000; 85025

== ENCOUNTER 2021-05-26 21:17 | Emergency (ER) | payer BC ==
[~2021-05-26] VITALS: Ht 185.5 cm; Wt 102.0 kg
[~2021-05-26 21:17] MED LIST changes: +DICY20TA10 PO; +ONDA8TAB13 PO
--- NOTE | 2021-05-26 21:45 | ED Abdominal Pain ---
General Stated Complaint: STOMACH PAIN Source of Information: Patient Exam Limitations: No Limitations History of Present Illness Date Seen by Provider: May 26, 2021 Time Seen by Provider: 21:30 Initial Comments Rojas is a 35-year-old male who presents to the emergency department with a chief complaint of left-sided stomach pain. Patient was seen here in the emergency department by me approximately 18 hours ago with similar complaints. Patient had laboratory studies including a CBC chemistry urinalysis and CT scan of the abdomen and pelvis. It was noted that he had 2 punctate stones within the right kidney, no evidence of solid organ injury, inflammation or free fluid. No evidence of bowel obstruction. He states that he has been having loose stools. Urinating normally. I sent him home with nausea medications and Bentyl. He states that he had been taking those and felt okay up until about an hour prior to arrival when his pain returned worsened. He denies fevers chills, cough congestion shortness of breath. Again no testicular pain or genitourinary complaints. Nothing makes his pain any better or any worse since it started. He is vomiting secondary to the intensity of the pain he states he is not nauseated. Patient has a history of bipolar disorder on lithium, Wellbutrin and Seroquel. He is concerned that he possibly ingested a foreign object when he was eating a couple of days ago. He questions maybe it was a toothpick. This would not be visualized on CT but he had no secondary findings of inflammation or perforation. He is not passing any blood in his stool that he is aware of. He denies thoughts of self-harm. Did not intentionally swallowed foreign object he states. All other review of systems reviewed and negative except as stated. Timing/Duration: 1 Hour Severity/Quality: Severe, Aching, Sharp Location: LLQ Radiation: No Radiation Associated Symptoms: Nausea/Vomiting (retching "from the pain") Allergies and Home Medications Allergies Coded Allergies: Penicillins (Unverified Allergy, Mild, RASH, 06/23/10) Home Medications Dicyclomine HCl 20 Mg Tablet, 20 MG PO Q6H PRN for abdominal cramping Prescribed by: ZAID TOSCANO on 05/26/21 0347 Hydrocodone Bit/Acetaminophen 1 Each Tablet, 1 EACH PO Q6HR PRN Prescribed by: PHOEBE CISNEROS on 06/23/10 0330 Ondansetron 8 Mg Tab.rapdis, 8 MG PO Q8H Prescribed by: ZAID TOSCANO on 05/26/21 0308 [Hydrocet 5-5001 Each] , 5-500 MG PO NEEDED, (Reported) Patient Home Medication List Home Medication List Reviewed: Yes Review of Systems Review of Systems Constitutional: see HPI EENTM: No Symptoms Reported Respiratory: No Symptoms Reported Cardiovascular: No Symptoms Reported Gastrointestinal: Abdominal Pain, Vomiting, Other ("loose stool") Genitourinary: No Symptoms Reported Musculoskeletal: no symptoms reported Skin: no symptoms reported Psychiatric/Neurological: Anxiety (tearful) All Other Systems Reviewed Negative Unless Noted: Yes Past Rcimtlk-Ygyvzw-Ikcamz Hx Immunizations Up To Date Tetanus Booster (TDap): More than 5yrs PED Vaccines UTD: Yes Seasonal Allergies Seasonal Allergies: No Past Medical History Surgeries: No Respiratory: No Cardiac: No Neurological: No Genitourinary: No Gastrointestinal: No Musculoskeletal: No Endocrine: No HEENT: No Cancer: No Psychosocial: Yes Bipolar Integumentary: No Blood Disorders: No Physical Exam Vital Signs Vital Signs - First Documented 05/26/21 21:31 Temp 37.3 Pulse 121 Resp 18 B/P (MAP) 143/104 (117) Pulse Ox 95 O2 Delivery Room Air Capillary Refill : Height/Weight/BMI Height: '" Weight: lbs. oz. kg; 29.00 BMI Method: General Appearance: WD/WN, moderate distress HEENT: PERRL/EOMI, other (upper and lower lids a little swollen from crying) Neck: full range of motion Respiratory: lungs clear, normal breath sounds, no respiratory distress, no accessory muscle use Cardiovascular: regular rate, rhythm Gastrointestinal: soft, other (tender to palpation (out of proportion to exam LLQ; patient jerks with pain on just light palpation of the skin of the LLQ. He states it fells like he is "being stabbed") Extremities: normal inspection Neurologic/Psychiatric: alert, depressed affect Skin: normal color, warm/dry Progress/Results/Core Measures Results/Orders Lab Results Laboratory Tests Test 05/26/21 21:40 05/26/21 21:53 Range/Units White Blood Count 7.8 4.3-11.0 10^3/uL Red Blood Count 5.03 4.30-5.52 10^6/uL Hemoglobin 14.4 13.3-17.7 g/dL Hematocrit 44 40-54 % Mean Corpuscular Volume 88 80-99 fL Mean Corpuscular Hemoglobin 29 25-34 pg Mean Corpuscular Hemoglobin Concent 33 32-36 g/dL Red Cell Distribution Width 13.4 10.0-14.5 % Platelet Count 310 130-400 10^3/uL Mean Platelet Volume 9.5 9.0-12.2 fL Immature Granulocyte % (Auto) 0 % Neutrophils (%) (Auto) 63 42-75 % Lymphocytes (%) (Auto) 29 12-44 % Monocytes (%) (Auto) 7 0-12 % Eosinophils (%) (Auto) 0 0-10 % Basophils (%) (Auto) 1 0-10 % Neutrophils # (Auto) 4.9 1.8-7.8 10^3/uL Lymphocytes # (Auto) 2.2 1.0-4.0 10^3/uL Monocytes # (Auto) 0.6 0.0-1.0 10^3/uL Eosinophils # (Auto) 0.0 0.0-0.3 10^3/uL Basophils # (Auto) 0.1 0.0-0.1 10^3/uL Immature Granulocyte # (Auto) 0.0 0.0-0.1 10^3/uL Sodium Level 142 135-145 MMOL/L Potassium Level 3.4 L 3.6-5.0 MMOL/L Chloride Level 106 98-107 MMOL/L Carbon Dioxide Level 19 L 21-32 MMOL/L Anion Gap 17 H 5-14 MMOL/L Blood Urea Nitrogen 12 7-18 MG/DL Creatinine 1.34 H 0.60-1.30 MG/DL Estimat Glomerular Filtration Rate 61 BUN/Creatinine Ratio 9 Glucose Level 122 H 70-105 MG/DL Calcium Level 9.4 8.5-10.1 MG/DL Corrected Calcium 8.5-10.1 MG/DL Total Bilirubin 1.2 H 0.1-1.0 MG/DL Aspartate Amino Transf (AST/SGOT) 85 H 5-34 U/L Alanine Aminotransferase (ALT/SGPT) 274 H 0-55 U/L Alkaline Phosphatase 50 40-136 U/L Total Protein 7.8 6.4-8.2 GM/DL Albumin 4.7 H 3.2-4.5 GM/DL Lipase 30 8-78 U/L Urine Opiates Screen NEGATIVE NEGATIVE Urine Oxycodone Screen NEGATIVE NEGATIVE Urine Methadone Screen NEGATIVE NEGATIVE Urine Propoxyphene Screen NEGATIVE NEGATIVE Urine Barbiturates Screen NEGATIVE NEGATIVE Ur Tricyclic Antidepressants Screen NEGATIVE NEGATIVE Urine Phencyclidine Screen NEGATIVE NEGATIVE Urine Amphetamines Screen NEGATIVE NEGATIVE Urine Methamphetamines Screen NEGATIVE NEGATIVE Urine Benzodiazepines Screen NEGATIVE NEGATIVE Urine Cocaine Screen NEGATIVE NEGATIVE Urine Cannabinoids Screen POSITIVE H NEGATIVE My Orders Orders - ZAID TOSCANO MD Ed Iv/Invasive Line Start (05/26/21 21:31) Cbc With Automated Diff (05/26/21 21:31) Comprehensive Metabolic Panel (05/26/21 21:39) Lipase (05/26/21 21:39) Drug Screen Stat (Urine) (05/26/21 21:48) Ns Iv 1000 Ml (Sodium Chloride 0.9%) (05/26/21 22:30) Lorazepam Injection (Ativan Injection) (05/26/21 22:30) Medications Given in ED Current Medications Medications Dose Ordered Sig/Abigail Route Start Time Stop Time Status Last Admin Dose Admin Lorazepam 0.5 mg ONCE PRN IVP 05/26/21 22:30 05/26/21 22:24 0.5 MG Vital Signs/I&O 05/26/21 21:31 Temp 37.3 Pulse 121 Resp 18 B/P (MAP) 143/104 (117) Pulse Ox 95 O2 Delivery Room Air Progress Progress Note : Time: 22:29 Progress Note Patient rechecked, sitting comfortably on the side of the bed. No acute distress. Patient states his pain is improved. He cannot think of any other pertinent historical factors regarding the visit tonight. He states he took the Bentyl 3 times throughout the day. Denies again any fevers or chills. Denies again any testicular/scrotal complaints. 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 No other complaints. Patient is noted to have slightly elevated liver function studies. I have advised him to follow-up at [facility] for this. I have given him good return precautions. He has been treated in the emergency department with a liter of fluids and 1/2 mg of Ativan. All questions are sought and answered. Patient is stable for discharge. Departure Impression Primary Impression: Abdominal pain Qualified Codes: R10.32 - Left lower quadrant pain Disposition: HOME, SELF-CARE Condition: Stable Departure-Patient Inst. Decision time for Depature: 22:56 Referrals: [facility]/THUY ORNELAS,LOCAL PHYSICIAN (PCP) Primary Care Physician Patient Instructions: Abdominal Pain, Adult ED Add. Discharge Instructions: Drink lots of fluids to stay well-hydrated. Follow a clear liquid diet for the next 12 to 24 hours and then slowly advance your diet as tolerated. You can continue the Bentyl every 6 hours as needed for abdominal spasms/cramps and pain. Start an oyqd-tph-haszict acid fingerprinter such as Pepcid or Prilosec. You should take this for the next 2 to 4 weeks. Please follow-up with [facility]. Return to the emergency room for any persistent/worsening symptoms - especially with fever, vomiting blood or passing blood in your stool. Copy Copies To 1: TRISTIAN DALLAS KATHRYN M MD May 26, 2021 21:45
[2021-05-26 21:48] LABS: BASOPHILS # (AUTO) 0.1 10^3/uL (0.0-0.1); BASOPHILS % (AUTO) 1 % (0-10); EOSINOPHILS % (AUTO) 0 % (0-10); HEMATOCRIT 44 % (40-54); HEMOGLOBIN 14.4 g/dL (13.3-17.7); LYMPHOCYTES # (AUTO) 2.2 10^3/uL (1.0-4.0); LYMPHOCYTES % (AUTO) 29 % (12-44); MEAN CORPUSCULAR HEMOGLOBIN 29 pg (25-34); MEAN CORPUSCULAR HGB CONC 33 g/dL (32-36); MEAN CORPUSCULAR VOLUME 88 fL (80-99); MEAN PLATELET VOLUME 9.5 fL (9.0-12.2); MONOCYTES # (AUTO) 0.6 10^3/uL (0.0-1.0); MONOCYTES % (AUTO) 7 % (0-12); NEUTROPHILS # (AUTO) 4.9 10^3/uL (1.8-7.8); NEUTROPHILS % (AUTO) 63 % (42-75); PLATELET COUNT 310 10^3/uL (130-400); WHITE BLOOD COUNT 7.8 10^3/uL (4.3-11.0)
[2021-05-26 22:04] LABS: ALBUMIN 4.7 GM/DL (3.2-4.5); CHLORIDE 106 MMOL/L (98-107); POTASSIUM 3.4 MMOL/L (3.6-5.0); SODIUM 142 MMOL/L (135-145)
[2021-05-26 22:06] LABS: CALCIUM 9.4 MG/DL (8.5-10.1)
[2021-05-26 22:07] LABS: GLUCOSE 122 MG/DL (70-105); TOTAL PROTEIN 7.8 GM/DL (6.4-8.2)
[2021-05-26 22:08] LABS: CARBON DIOXIDE 19 MMOL/L (21-32)
[2021-05-26 22:09] LABS: BILIRUBIN,TOTAL 1.2 MG/DL (0.1-1.0)
[2021-05-26 22:10] LABS: ALKALINE PHOSPHATASE 50 U/L (40-136)
[2021-05-26 22:10] LABS: AMPHETAMINE SCREEN, URINE NEGATIVE (NEGATIVE); BARBITURATE SCREEN URINE NEGATIVE (NEGATIVE); BENZODIAZEPINES SCREEN URINE NEGATIVE (NEGATIVE); CANNABINOID SCREEN, URINE POSITIVE (NEGATIVE); COCAINE SCREEN URINE NEGATIVE (NEGATIVE); METHADONE STAT NEGATIVE (NEGATIVE); METHAMPHETAMINE SCREEN URINE S NEGATIVE (NEGATIVE); OPIATE SCREEN URINE NEGATIVE (NEGATIVE); OXYCODONE STAT NEGATIVE (NEGATIVE); PROPOXYPHENE STAT NEGATIVE (NEGATIVE); TRICYCLIC ANTIDEPRESSANTS SCRE NEGATIVE (NEGATIVE)
[2021-05-26 22:11] LABS: CREATININE SERUM 1.34 MG/DL (0.60-1.30); GFR ESTIMATED 61
[2021-05-26 22:12] LABS: BUN/CREATININE RATIO 9
[2021-05-26 22:13] LABS: ALANINE AMINOTRANSFERASE 274 U/L (0-55)
[2021-05-26 22:14] LABS: LIPASE 30 U/L (8-78)
[2021-05-26] MEDS ORDERED: NS IV 1000 ML 1,000 ML IV SCH (22:30)
[2021-05-26] MEDS ORDERED: LORazepam INJ 2 MG/ML (ATIVAN) VIAL IVP PRN (22:30)
[2021-05-26 23:03] VITALS: BP 142/89
== END 2021-05-26 23:06 | disposition home or self-care (01) ==
LOC: EDUNIT# 21:17 → ER 21:19
DX: R10.32 Left lower quadrant pain (principal)
CPT/HCPCS: 36415; 80053; 80306; 83690; 85025